=== PATIENT | male | born 1980 | race American Indian/Alaskan Native ===

== ENCOUNTER 2017-01-31 02:39 | Emergency (ER) | payer SELFPAY ==
--- NOTE | 2017-01-31 05:13 | Emergency Department Report ---
HPI - General Chief Complaint: Urogenital-Male Time Seen by Provider: 01/31/17 04:57 - HPI HPI: 36-year-old male presents since the ED stating is here for STD treatment. Patient states he has some penile discharge that started 2 days ago. Patient states discharges about whitish greenish. Patient also admits pain with urination. Patient denies recent intercourse. he denies scrotum pain She denies fever/chills/nausea/vomiting or any other problems ED Past Medical Hx - Past Medical History Previous Medical History?: No - Surgical History Past Surgical History?: No - Social History Smoking Status: Current Some Day Smoker Substance Use Type: Alcohol - Medications Home Medications: Home Medications Medication Instructions Recorded Confirmed Last Taken Type Ibuprofen [Motrin] 800 mg PO Q8H PRN 10/11/14 10/11/14 10/11/14 History Amoxicillin [Trimox CAP] 500 mg PO Q8H #21 capsule 10/12/14 Unknown Rx HYDROcodone/APAP 10-325 [[place] 1 each PO Q6HR PRN #16 tablet 10/12/14 Unknown Rx 10/325] Ibuprofen [Motrin] 600 mg PO Q8H PRN #50 tablet 05/15/16 Unknown Rx Sulfamethoxazole/Trimethoprim 1 each PO BID #20 tablet 05/15/16 Unknown Rx [Bactrim DS TAB] traMADol [Ultram] 50 mg PO Q6HR PRN #20 tablet 05/15/16 Unknown Rx Sulfamethoxazole/Trimethoprim 1 each PO BID #14 tablet 01/31/17 Unknown Rx [Bactrim DS TAB] metroNIDAZOLE [Flagyl] 500 mg PO ONCE #4 tab 01/31/17 Unknown Rx ED Review of Systems ROS: Stated complaint: STD BURNING Other details as noted in HPI Constitutional: denies: chills, fever, malaise Eyes: denies: eye pain, eye discharge, vision change ENT: denies: ear pain, throat pain, dental pain, hearing loss Respiratory: denies: cough, shortness of breath, wheezing Cardiovascular: denies: chest pain, palpitations Endocrine: no symptoms reported Gastrointestinal: denies: abdominal pain, nausea, vomiting, diarrhea, constipation, melena Genitourinary: dysuria. denies: urgency, frequency, hematuria, testicular pain , testicular mass Musculoskeletal: denies: back pain, joint swelling, arthralgia, myalgia Skin: denies: rash, lesions, pruritus Neurological: denies: headache, weakness, numbness, paresthesias, confusion, abnormal gait, vertigo Psychiatric: denies: anxiety, depression Hematological/Lymphatic: denies: easy bleeding, easy bruising Physical Exam - Physical Exam Vital Signs: Vital Signs 01/31/17 01/31/17 04:13 04:38 Temperature 97.7 F 97.7 F Pulse Rate 94 H 95 H Respiratory 20 20 Rate Blood Pressure 143/93 Blood Pressure 137/85 [Right] O2 Sat by Pulse 100 98 Oximetry Physical Exam: GENERAL: Alert and oriented x3, no apparent distress, Normal Gait, atraumatic. HEAD: Head is normocephalic and a-traumatic. NOSE: Nose symetrical, Nontender,Nares appeared normal. MOUTH:Mouth is well hydrated and without lesions. Patent airways. NECK: Supple. Non edematous, No carotid bruits. No lymphadenopathy or thyromegaly. LUNGS: Symetrical with respiration, No wheezing, no rales or crackles, CTAB. HEART: S1, S2 present, regular rate and rhythm without murmur, no rubs, no gallops. ABDOMEN: No organomegaly was noted,Positive bowel sounds, soft, and non- distended. . Nontender to palpation on all Quadrants, NO CVA tenderness. UROGENITAL: No scrotal mass, Scrotum non tender to palpation bilaterally, no hernia, no scars or penile discharge. EXTREMITIES/MUSCULOSKELETAL: No cyanosis, clubbing, rash, lesions or edema. Full ROM bilaterally. UE/LE Pulses 2+ bilaterally. LE and UE 5+ strength bilaterally. SKIN: Warm and dry, No lesions, No ulceration or induration present. ED Course Vital Signs 01/31/17 01/31/17 04:13 04:38 Temperature 97.7 F 97.7 F Pulse Rate 94 H 95 H Respiratory 20 20 Rate Blood Pressure 143/93 Blood Pressure 137/85 [Right] O2 Sat by Pulse 100 98 Oximetry ED Medical Decision Making - Medical Decision Making 28-year-old male presents with UTI/STD exposure ED course: Patient received 250 mg of Rocephin and 1 g of azithromycin Urinalysis shows positive bacteria and elevated WBC. Discussed findings with patient. Discussed them. STDs treatment. Discussed antibiotics for her UTI as well as STD Discussed the patient and take all prescription as discussed and prescribed Discussed to follow up with the health department or family care to further STD testing. Patient verbally states he understands and will comply to follow-up. Vital signs are stable. Patient is in no acute distress Critical care attestation.: If time is entered above; I have spent that time in minutes in the direct care of this critically ill patient, excluding procedure time. ED Disposition Clinical Impression: STD exposure UTI (urinary tract infection) Qualifiers: Urinary tract infection type: acute cystitis Hematuria presence: with hematuria Qualified Code(s): N30.01 - Acute cystitis with hematuria Disposition: DISCHARGED TO HOME OR SELFCARE Is pt being admited?: No Does the pt Need Aspirin: No Condition: Stable Instructions: Urinary Tract Infection in Men (ED), Dysuria (ED), Sexually Transmitted Diseases (ED), Safe Sex (ED) Prescriptions: metroNIDAZOLE [Flagyl] 500 mg PO ONCE #4 tab Sulfamethoxazole/Trimethoprim [Bactrim DS TAB] 1 each PO BID #14 tablet Referrals: PRIMARY CAREMD [Primary Care Provider] - 3-5 Days SKYLER LUKE MD [Referring] - 3-5 Days [facility] [Outside] - 3-[address] [facility] [place] [Outside] - 3-5 Days [facility] [Outside] - 3-5 Days [facility] [Outside] - 3-5 Days Forms: Work/School Release Form(ED) Time of Disposition: 05:57
[2017-01-31 05:39] LABS: Bacteria,Urine 1+ /HPF (Negative); Bilirubin,Urine NEG (Negative); Blood,Urine NEG (Negative); Ketones,Urine NEG (Negative); Leukocyte Esterase,Urine LG (Negative); Mucus,Urine FEW /HPF; Nitrite,Urine NEG (Negative); Protein,Urine <15 mg/dL mg/dL (Negative)
[2017-01-31 05:44] LABS: WBC,Urine > 182.0 /HPF (0.0-6.0)
[2017-01-31] MEDS ORDERED: ZITHROMAX PO ONE (05:53)
[2017-01-31] MEDS ORDERED: XYLOCAINE 1% MPF 5 mL INFILTRATI ONE (05:53)
[2017-01-31] MEDS ORDERED: ROCEPHIN IM ONE (05:53)
[2017-01-31 06:18] VITALS: BP 134/87
== END 2017-01-31 06:00 | disposition home or self-care (01) ==
LOC: ED 02:39
DX: N30.01 Acute cystitis with hematuria (principal); Z20.2 Contact with and (suspected) exposure to infections with a predominantly sexual mode of transmission; Z72.0 Tobacco use
CPT/HCPCS: 81001; 96372; 99283; J0696

== ENCOUNTER 2017-07-09 23:20 | Emergency (ER) | payer SELFPAY ==
[2017-07-09] MEDS ORDERED: TYLENOL PO ONE (23:53)
[2017-07-09] MEDS ORDERED: TYLENOL ONE (23:59)
[2017-07-10 00:28] LABS: Hematocrit 47.3 % (35.5-45.6); Mean Corpuscular HGB Conc 32 % (32-34); Mean Corpuscular Hemoglobin 26 pg (28-32); Mean Corpuscular Volume 82 fl (84-94); Red Blood Count 5.74 M/mm3 (3.65-5.03); Red Cell Distribution Width 14.6 % (13.2-15.2)
[2017-07-10 00:31] LABS: Platelet Count 232 K/mm3 (140-440); White Blood Count 22.5 K/mm3 (4.5-11.0)
[2017-07-10 00:42] LABS: Blood Urea Nitrogen 12 mg/dL (9-20); Calcium 9.1 mg/dL (8.4-10.2); Carbon Dioxide 24 mmol/L (22-30); Chloride 98.1 mmol/L (98-107); Glucose 73 mg/dL (75-100); Sodium 138 mmol/L (137-145)
[2017-07-10 01:02] LABS: Anion Gap 21 mmol/L; Potassium 4.8 mmol/L (3.6-5.0)
[2017-07-10 01:16] LABS: Anisocytosis 1+; Basophils % (Manual) 0 % (0.0-1.8); Blastocytes % (Manual) 0 %; Eosinophils % (Manual) 0 % (0.0-4.3); Stomatocytes Rare
[2017-07-10 01:17] LABS: Diff Status Complete
--- NOTE | 2017-07-10 07:11 | Emergency Department Report ---
ED ENT HPI - General Chief complaint: Sore Throat Stated complaint: SORE THROAT Time Seen by Provider: 07/10/17 06:54 Source: patient Mode of arrival: Ambulatory Limitations: No Limitations - History of Present Illness Initial comments: pt is 37 y/o aam with hx infected dental caries who present for dental abscess right lower, there is no facial swelling pt is tolerating po intake without difficulty, pain described as 7/10 aching, complaint: tooth pain, sore throat Onset/Timin -: week(s) Location: tooth # (30) 1 - moderate erythema mild gum swelling no drainage uvula midline, no stidor moderate erythema no exudate. Severity: moderate Severity scale (0 -10): 7 Quality: aching Consistency: intermittent Improves with: none Worsens with: eating, other (hot cold sensation ) Context- Dental: history of dental caries, poor dental care Associated Symptoms: fever, toothache, sore throat - Related Data Home Medications Medication Instructions Recorded Confirmed Last Taken Ibuprofen [Motrin] 800 mg PO Q8H PRN 10/11/14 10/11/14 10/11/14 Previous Rx's Medication Instructions Recorded Last Taken Type Amoxicillin [Trimox CAP] 500 mg PO Q8H #21 capsule 10/12/14 Unknown Rx HYDROcodone/APAP 10-325 [[place] 1 each PO Q6HR PRN #16 tablet 10/12/14 Unknown Rx 10/325] Ibuprofen [Motrin] 600 mg PO Q8H PRN #50 tablet 05/15/16 Unknown Rx Sulfamethoxazole/Trimethoprim 1 each PO BID #20 tablet 05/15/16 Unknown Rx [Bactrim DS TAB] traMADol [Ultram] 50 mg PO Q6HR PRN #20 tablet 05/15/16 Unknown Rx Sulfamethoxazole/Trimethoprim 1 each PO BID #14 tablet 01/31/17 Unknown Rx [Bactrim DS TAB] metroNIDAZOLE [Flagyl] 500 mg PO ONCE #4 tab 01/31/17 Unknown Rx Amoxicillin/K Clav Tab [Augmentin 1 tab PO Q12HR #20 tab 07/10/17 Unknown Rx 875 mg] Chlorhexidine Mouthwash [Peridex] 15 ml MM BID #1 bottle 07/10/17 Unknown Rx traMADol [Ultram] 50 mg PO Q6HR PRN #20 tablet 07/10/17 Unknown Rx Allergies Allergy/AdvReac Type Severity Reaction Status Date / Time No Known Allergies Allergy Verified 01/31/17 04:17 ED Dental HPI - General Chief complaint: Sore Throat Stated complaint: SORE THROAT Time Seen by Provider: 07/10/17 06:54 Source: patient Mode of arrival: Ambulatory Limitations: No Limitations - Related Data Home Medications Medication Instructions Recorded Confirmed Last Taken Ibuprofen [Motrin] 800 mg PO Q8H PRN 10/11/14 10/11/14 10/11/14 Previous Rx's Medication Instructions Recorded Last Taken Type Amoxicillin [Trimox CAP] 500 mg PO Q8H #21 capsule 10/12/14 Unknown Rx HYDROcodone/APAP 10-325 [[place] 1 each PO Q6HR PRN #16 tablet 10/12/14 Unknown Rx 10/325] Ibuprofen [Motrin] 600 mg PO Q8H PRN #50 tablet 05/15/16 Unknown Rx Sulfamethoxazole/Trimethoprim 1 each PO BID #20 tablet 05/15/16 Unknown Rx [Bactrim DS TAB] traMADol [Ultram] 50 mg PO Q6HR PRN #20 tablet 05/15/16 Unknown Rx Sulfamethoxazole/Trimethoprim 1 each PO BID #14 tablet 01/31/17 Unknown Rx [Bactrim DS TAB] metroNIDAZOLE [Flagyl] 500 mg PO ONCE #4 tab 01/31/17 Unknown Rx Amoxicillin/K Clav Tab [Augmentin 1 tab PO Q12HR #20 tab 07/10/17 Unknown Rx 875 mg] Chlorhexidine Mouthwash [Peridex] 15 ml MM BID #1 bottle 07/10/17 Unknown Rx traMADol [Ultram] 50 mg PO Q6HR PRN #20 tablet 07/10/17 Unknown Rx Allergies Allergy/AdvReac Type Severity Reaction Status Date / Time No Known Allergies Allergy Verified 01/31/17 04:17 ED Review of Systems ROS: Stated complaint: SORE THROAT Other details as noted in HPI Constitutional: denies: chills, fever Eyes: denies: eye pain, eye discharge, vision change ENT: dental pain Respiratory: denies: cough, shortness of breath, wheezing Cardiovascular: denies: chest pain, palpitations Endocrine: no symptoms reported Gastrointestinal: denies: abdominal pain, nausea, diarrhea Genitourinary: denies: urgency, dysuria Musculoskeletal: denies: back pain, joint swelling, arthralgia Skin: denies: rash, lesions Neurological: denies: headache, weakness, paresthesias Psychiatric: denies: anxiety, depression Hematological/Lymphatic: denies: easy bleeding, easy bruising ED Past Medical Hx - Past Medical History Previous Medical History?: No - Surgical History Past Surgical History?: No - Social History Smoking Status: Current Every Day Smoker Substance Use Type: Alcohol - Medications Home Medications: Home Medications Medication Instructions Recorded Confirmed Last Taken Type Ibuprofen [Motrin] 800 mg PO Q8H PRN 10/11/14 10/11/14 10/11/14 History Amoxicillin [Trimox CAP] 500 mg PO Q8H #21 capsule 10/12/14 Unknown Rx HYDROcodone/APAP 10-325 [[place] 1 each PO Q6HR PRN #16 tablet 10/12/14 Unknown Rx 10/325] Ibuprofen [Motrin] 600 mg PO Q8H PRN #50 tablet 05/15/16 Unknown Rx Sulfamethoxazole/Trimethoprim 1 each PO BID #20 tablet 05/15/16 Unknown Rx [Bactrim DS TAB] traMADol [Ultram] 50 mg PO Q6HR PRN #20 tablet 05/15/16 Unknown Rx Sulfamethoxazole/Trimethoprim 1 each PO BID #14 tablet 01/31/17 Unknown Rx [Bactrim DS TAB] metroNIDAZOLE [Flagyl] 500 mg PO ONCE #4 tab 01/31/17 Unknown Rx Amoxicillin/K Clav Tab [Augmentin 1 tab PO Q12HR #20 tab 07/10/17 Unknown Rx 875 mg] Chlorhexidine Mouthwash [Peridex] 15 ml MM BID #1 bottle 07/10/17 Unknown Rx traMADol [Ultram] 50 mg PO Q6HR PRN #20 tablet 07/10/17 Unknown Rx ED Physical Exam - General Limitations: No Limitations General appearance: alert, in no apparent distress - Head Head exam: Present: atraumatic, normocephalic - Eye Eye exam: Present: normal appearance - ENT ENT exam: Present: mucous membranes moist, TM's normal bilaterally - Expanded ENT Exam Expanded Mouth exam: Present: tongue normal. Absent: trismus, muffled voice, tongue elevation Teeth exam: Present: dental caries, dental tenderness # (30) Throat exam: Positive: tonsillar erythema, tonsillomegaly. Negative: tonsillar exudate, R peritonsillar mass, L peritonsillar mass - Neck Neck exam: Present: normal inspection, full ROM. Absent: tenderness, lymphadenopathy, thyromegaly - Respiratory Respiratory exam: Present: normal lung sounds bilaterally. Absent: respiratory distress, wheezes, stridor - Cardiovascular Cardiovascular Exam: Present: regular rate, normal rhythm. Absent: systolic murmur, diastolic murmur, rubs, gallop - GI/Abdominal GI/Abdominal exam: Present: soft, normal bowel sounds - Rectal Rectal exam: Present: deferred - Extremities Exam Extremities exam: Present: normal inspection - Neurological Exam Neurological exam: Present: alert, oriented X3 - Psychiatric Psychiatric exam: Present: normal affect, normal mood - Skin Skin exam: Present: warm, dry, intact, normal color. Absent: rash ED Course Vital Signs 07/09/17 07/10/17 23:49 04:34 Temperature 101.0 F H 98.8 F Pulse Rate 77 69 Respiratory 18 18 Rate Blood Pressure 140/84 Blood Pressure 121/63 [Left] O2 Sat by Pulse 100 98 Oximetry ED Medical Decision Making - Lab Data Result diagrams: 07/10/17 00:01 07/10/17 00:01 - Medical Decision Making pt is 37 y/o aam with hx infected dental caries who present for dental abscess right lower, there is no facial swelling pt is tolerating po intake without difficulty, pain described as 7/10 aching, exam: mild gum erythema no focal abscess @# 30 , no facial swelling uvula midline airway is patent, plan : augmentin, peridex, ultram pt will follow up with [facility] will call in 2 days to setup appointment pt verbalized agreement and understanding with same. Critical care attestation.: If time is entered above; I have spent that time in minutes in the direct care of this critically ill patient, excluding procedure time. ED Disposition Clinical Impression: Infected dental caries Disposition: TO HOME OR SELFCARE Is pt being admited?: No Does the pt Need Aspirin: No Condition: Good Instructions: Dental Caries (ED) Additional Instructions: follow up with [facility] [phone] call to setup appointment Prescriptions: Amoxicillin/K Clav Tab [Augmentin 875 mg] 1 tab PO Q12HR #20 tab Chlorhexidine Mouthwash [Peridex] 15 ml MM BID #1 bottle traMADol [Ultram] 50 mg PO Q6HR PRN #20 tablet PRN Reason: Pain Referrals: PRIMARY CARE, [Primary Care Provider] - 3-5 Days Forms: Work/School Release Form(ED) Time of Disposition: 07:21
[2017-07-10 07:40] VITALS: BP 156/103
== END 2017-07-10 07:41 | disposition home or self-care (01) ==
LOC: ED 23:20
DX: K02.9 Dental caries, unspecified (principal); F17.200 Nicotine dependence, unspecified, uncomplicated
CPT/HCPCS: 36415; 80048; 85007; 85025; 99283

== ENCOUNTER 2020-01-03 16:40 | Emergency (ER) | payer SELFPAY ==
--- NOTE | 2020-01-03 17:28 | Emergency Department Report ---
{null, Blank Doc - Documentation Documentation: 39-year-old male that presents with right facial abscess. Patient stated is t aking antibiotcs clinda for dental pain. This initial assessment/diagnostic orders/clinical plan/treatment(s) is/are subject to change based on patient's health status, clinical progression and re- assessment by fellow clinical providers in the ED. Further treatment and workup at subsequent clinical providers discretion. Patient/guardians urged not to elope from the ED as their condition may be serious if not clinically assessed and managed. Initial orders include: 1- Patient sent to [facility] for further evaluation and treatment 2- I/D needed }
[2020-01-03 17:32] VITALS: BP 156/97
--- NOTE | 2020-01-03 21:13 | Emergency Department Report ---
{null, Abscess Boil HPI - HPI Chief Complaint: Dental/Oral Stated Complaint: ABSCESS Time Seen by Provider: 01/03/20 17:27 Duration: 3 Days Location: Other (right cheek) History: No Fever, No Pain, No Purulent Drainage, No Numbness, No Foreign Body, No Previous History, No Insect Bite HPI: ingrown hair Home Medications: Home Medications Medication Instructions Recorded Confirmed Last Taken Ibuprofen [Motrin] 800 mg PO Q8H PRN 10/11/14 10/11/14 10/11/14 Previous Rx's Medication Instructions Recorded Last Taken Type Amoxicillin [Trimox CAP] 500 mg PO Q8H #21 capsule 10/12/14 Unknown Rx HYDROcodone/APAP 10-325 [[place] 1 each PO Q6HR PRN #16 tablet 10/12/14 Unknown Rx 10/325] Ibuprofen [Motrin] 600 mg PO Q8H PRN #50 tablet 05/15/16 Unknown Rx Sulfamethoxazole/Trimethoprim 1 each PO BID #20 tablet 05/15/16 Unknown Rx [Bactrim DS TAB] traMADoL [Ultram] 50 mg PO Q6HR PRN #20 tablet 05/15/16 Unknown Rx Sulfamethoxazole/Trimethoprim 1 each PO BID #14 tablet 01/31/17 Unknown Rx [Bactrim DS TAB] metroNIDAZOLE [Flagyl] 500 mg PO ONCE #4 tab 01/31/17 Unknown Rx Amoxicillin/K Clav Tab [Augmentin 1 tab PO Q12HR #20 tab 07/10/17 Unknown Rx 875 mg] Chlorhexidine Mouthwash [Peridex] 15 ml MM BID #1 bottle 07/10/17 Unknown Rx traMADoL [Ultram] 50 mg PO Q6HR PRN #20 tablet 07/10/17 Unknown Rx Allergies/Adverse Reactions: Allergies Allergy/AdvReac Type Severity Reaction Status Date / Time No Known Allergies Allergy Verified 01/31/17 04:17 ED Review of Systems ROS: Stated complaint: ABSCESS Other details as noted in HPI Constitutional: denies: chills, fever Eyes: denies: eye pain, eye discharge, vision change ENT: denies: ear pain, throat pain Respiratory: denies: cough, shortness of breath, wheezing Cardiovascular: denies: chest pain, palpitations Endocrine: no symptoms reported Gastrointestinal: denies: abdominal pain, nausea, diarrhea Genitourinary: denies: urgency, dysuria Musculoskeletal: denies: back pain, joint swelling, arthralgia Skin: other (right cheek ingrown hair). denies: rash, lesions Neurological: denies: headache, weakness, paresthesias Psychiatric: denies: anxiety, depression Hematological/Lymphatic: denies: easy bleeding, easy bruising ED Past Medical Hx - Past Medical History Previous Medical History?: No - Surgical History Past Surgical History?: No - Social History Smoking Status: Current Every Day Smoker Substance Use Type: None - Medications Home Medications: Home Medications Medication Instructions Recorded Confirmed Last Taken Type Ibuprofen [Motrin] 800 mg PO Q8H PRN 10/11/14 10/11/14 10/11/14 History Amoxicillin [Trimox CAP] 500 mg PO Q8H #21 capsule 10/12/14 Unknown Rx HYDROcodone/APAP 10-325 [[place] 1 each PO Q6HR PRN #16 tablet 10/12/14 Unknown Rx 10/325] Ibuprofen [Motrin] 600 mg PO Q8H PRN #50 tablet 05/15/16 Unknown Rx Sulfamethoxazole/Trimethoprim 1 each PO BID #20 tablet 05/15/16 Unknown Rx [Bactrim DS TAB] traMADoL [Ultram] 50 mg PO Q6HR PRN #20 tablet 05/15/16 Unknown Rx Sulfamethoxazole/Trimethoprim 1 each PO BID #14 tablet 01/31/17 Unknown Rx [Bactrim DS TAB] metroNIDAZOLE [Flagyl] 500 mg PO ONCE #4 tab 01/31/17 Unknown Rx Amoxicillin/K Clav Tab [Augmentin 1 tab PO Q12HR #20 tab 07/10/17 Unknown Rx 875 mg] Chlorhexidine Mouthwash [Peridex] 15 ml MM BID #1 bottle 07/10/17 Unknown Rx traMADoL [Ultram] 50 mg PO Q6HR PRN #20 tablet 07/10/17 Unknown Rx ED Abscess Boil Physical Exam - Exam General: Vital signs noted. No distress. Alert and acting appropriately. Size: 1 cm Exam: Yes Tenderness, Yes Normal Neurologic Exam, Yes Normal Circulation, No Fluctuance, No Surrounding Cellulites/Erythema, No Lymphangitis, No Crepitation, No Heart Murmur Exam: ingrown hair, no fluctuance , no drainage, no fever I & D Note - I & D Note I & D Note: pt declined ED Course Vital Signs 01/03/20 17:28 Temperature 98.7 F Pulse Rate 84 Respiratory 18 Rate Blood Pressure 156/97 O2 Sat by Pulse 100 Oximetry Critical care attestation.: If time is entered above; I have spent that time in minutes in the direct care of this critically ill patient, excluding procedure time. ED Medical Decision Making - Medical Decision Making this is a ingrown hair, pt declines I&D, pt does not have an emergency medical condition, advised that he will remove hair at home himself. this is reasonable for this case. ED Disposition Clinical Impression: Ingrown hair Disposition: Z- MED SCREENING EXAM-LEFT Is pt being admited?: No Does the pt Need Aspirin: No Condition: Stable Time of Disposition: 21:13 }
== END 2020-01-03 21:15 | disposition left against medical advice (07) ==
LOC: ED 16:40
DX: L73.1 Pseudofolliculitis barbae (principal); F17.200 Nicotine dependence, unspecified, uncomplicated; Z79.899 Other long term (current) drug therapy
CPT/HCPCS: 99281

== ENCOUNTER 2020-10-27 20:14 | Emergency (ER) | payer OTHER ==
[2020-10-27 21:08] VITALS: BP 136/82
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
== END 2020-10-27 22:00 | disposition home or self-care (01) ==
LOC: ED 20:14
DX: M54.2 Cervicalgia (principal); M54.89 Other dorsalgia; F17.200 Nicotine dependence, unspecified, uncomplicated; Z79.899 Other long term (current) drug therapy; V89.2XXA Person injured in unspecified motor-vehicle accident, traffic, initial encounter; Y93.89 Activity, other specified; Y92.410 Unspecified street and highway as the place of occurrence of the external cause; Y99.8 Other external cause status
CPT/HCPCS: 99281